=== PATIENT | female | born 1955 | race Caucasian/White ===

== ENCOUNTER 2016-10-29 01:35 | Inpatient (IN) | payer OTHER ==
[~2016-10-29] VITALS: Ht 175.3 cm; Wt 108.9 kg
[~2016-10-29 01:35] MED LIST: PATADAY2.5 ML OU; PROAIR HFA8.5 GM INH; VERAMYST10 GM INH; VYVANSE40 M1 PO; XYZAL5 M1 PO; ZOLOFT100 M1 PO
--- NOTE | 2016-10-29 11:30 | Admission Core Measures ---
Admission Meds I reviewed the following Meds: Current Medications Sig/Naheed Start time Last Medication Dose Stop Time Status Admin Cefazolin Sodium 2,000 MG ONCE 10/29 0000 NR (Kefzol-Ancef Inj) 10/29 2358 Oxycodone HCl 10 MG ONCE 10/29 0000 NR (Roxicodone) 10/29 2358 Acute Coronary Syndrome Inclusion Criteria ACS Diagnosis No Inpatient Core Measures LDL Reminder: If No, please order W/I first 24hr of stay Congestive Heart Failure Inclusion Criteria CHF Diagnosis No Cerebrovascular accident Inclusion Criteria CVA/TIA Diagnosis No Inpatient Core Measures Bedside Swallow Eval Reminder: If BSE failed, place ST order Antithrombotic Reminder: Order Antithrombotic Medication by end of day 2 Antithrombotic Reminder: Document Reason Antithrombotic Not ordered by end of day 2 AFIB/Flutter Reminder: If Present, add to problem list AFIB/Flutter Reminder: Order Anticoag Medication for pts with AFIB/Flutter Atherosclerosis Reminder: If Present, add to problem list LDL Reminder: If No, please order W/I first 24hr of stay PT Order Reminder: If No, please order Venous thromboembolism Inpatient Core Measures VTE Risk Factors: Age > 40, Surgery No [facility] VTE prophylaxis d/t No contraindications No VTE Pharm Prophylaxis d/t No contraindications Inclusion Criteria - Per Current guidelines, there needs to be overlap - treatment for the first 5 days of Warfarin therapy. - Parenteral Anticoagulation (IV or SC) needs to be - given along with Warfarin therapy. VTE Diagnosis No VTE Type NONE VTE Confirmed by (Test) NONE Problem List As ranked by this Provider includes Assessment & Plan 1. S/P total hip arthroplasty HOME MEDS Home Med List Albuterol Sulfate (Proair Hfa) 90 MCG HFA.AER.AD 1 PUFF INH PRN PRN ASTHMA ( Reported) Fluticasone Furoate (Veramyst) 27.5 MCG/ACTUATION SPRAY.SUSP 1 PUFF INH PRN PRN ALLERGIES (Reported) Levocetirizine Dihydrochloride (Xyzal) 5 MG TABLET 1 TAB PO D ALLERGIES ( Reported) Lisdexamfetamine Dimesylate (Vyvanse) 40 MG CAPSULE 1 TAB PO DAILY ADHD ( Reported) Olopatadine HCl (Pataday) 0.2 % DROPS 1 GTT OU PRN PRN ALLERGIES (Reported) Sertraline HCl (Zoloft) 100 MG TABLET 1.5 TAB PO DAILY ADHD (Reported)
[2016-10-29] MEDS ORDERED: DILAUDID4 M1 PO (11:34)
[2016-10-29] MEDS ORDERED: COLACE100 M1 PO (11:34)
[2016-10-29] MEDS ORDERED: MS CONTIN15 M2 PO (11:34)
[2016-10-29] MEDS ORDERED: ASPIRIN325 M2 PO (11:34)
[2016-10-29] MEDS ORDERED: MIRALAX17 G1 PO (11:34)
--- NOTE | 2016-10-29 11:37 | Patient Discharge Instructions ---
Discharge Instructions General Discharge Information You were seen/treated for: Right hip degenerative joint disease You had these procedures: Right total hip arthroplasty Watch for these problems: Significantly increased pain or difficulty ambulating. Increased redness or drainage from around the incision. Temperatures over 101 No bath, but you may shower: Yes Other wound care: Daily dry dressing changes Special Instructions: See printed information sheet Diet Continue normal diet: Yes Activity Activity Self Limited: Yes Other activity limits: Ambulate per physical therapy recommendations No driving or operating machinery until seen by her surgeon Acute Coronary Syndrome Inclusion Criteria At DC or during hospital stay patient has or had the following: ACS DIAGNOSIS No Discharge Core Measures Meds if any: Prescribed or Continued at Discharge Meds if any: NOT Prescribed or Continued at Discharge Congestive Heart Failure Inclusion Criteria At DC or during hospital stay patient has or had the following: CHF DIAGNOSIS No Discharge Core Measures Meds if any: Prescribed or Continued at Discharge Meds if any: NOT Prescribed or Continued at Discharge Cerebrovascular accident Inclusion Criteria At DC or during hospital stay patient has or had the following: CVA/TIA Diagnosis No Discharge Core Measures Meds if any: Prescribed or Continued at Discharge Meds if any: NOT Prescribed or Continued at Discharge Venous thromboembolism Inclusion Criteria VTE Diagnosis No VTE Type NONE VTE Confirmed by (Test) NONE Discharge Core Measures - Per Current guidelines, there needs to be overlap - treatment for the first 5 days of Warfarin therapy. - If discharged on Warfarin prior to 5 days of - overlap therapy, the patient will need to be - assessed for post discharge needs including - *Post discharge parental anticoagulation - *Warfarin and/or parental anticoagulation education - *Follow up date to check INR post discharge At least 5 days overlap therapy as Inpatient No Meds if any: Prescribed or Continued at Discharge Note: Overlap Therapy is Warfarin and Anticoagulant Meds if any: NOT Prescribed or Continued at Discharge
--- NOTE | 2016-10-29 11:40 | Surg Short-stay <48hrs Dis Sum ---
Visit Information Visit Dates Admission Date: 10/29/16 Discharge Date: 10/30/16 Surgical Short Stay DC Summary Admission Diagnosis: Right hip degenerative joint disease Final Diagnosis: Same Procedure(s): Right total hip arthroplasty Summary/Significant Findings: The patient was admitted on 10/29/2016. She was brought to the operating theater where she underwent a right total hip arthroplasty. Postoperatively the patient progressed as expected and her pain is under adequate control. The patient worked both physical therapy, tolerated diet, and voided postoperatively. The patient was discharged with an uneventful hospital course. Condition at Discharge: Stable Discharge Disposition: home health services Discharge instructions provided to patient/family: Yes Post discharge follow-up plan: Call to be seen in 6 weeks or earlier if need be.
--- NOTE | 2016-10-29 15:03 | Operative Report ---
Operative/Inv Procedure Report Surgery Date: 10/29/16 Name of Procedure: Right total hip replacement Pre-Operative Diagnosis: Primary right hip DJD Post-Operative Diagnosis: Primary right hip DJD Estimated Blood Loss: 300 Surgeon/Coater Slate: ANTHONY LONDON,AVINASH Egan Anesthesia: block Operative/Procedure Note Note: Description of Procedure: The patient was taken to the operating room and positively identified. After induction of spinal anesthesia and administration of appropriate pre-operative antibiotics, the patient was positioned supine on the operating room table and all bony prominences were well padded. After performing a surgical timeout, the right lower extremity was prepped and draped in the usual sterile fashion. A direct anterior approach was made to the right hip. The incision was carried sharply through superficial soft tissues to the level of the fascia. Meticulous hemostasis was maintained with Bovie electocautery. The fascia over the tensor fascia chavez muscle was opened sharply and the interval between the TFL and the sartorius was entered bluntly taking care to stay lateral to the lateral femoral cutaneous nerve. Retractors were placed around the femoral neck and the pericapsular fat was identified. The ascending branches of the lateral femoral circumflex vessels were identified and carefully coagulated. The pericapsular fat and anterior capsule were then resected. A napkin ring osteotomy was performed and the femoral head was removed without difficulty. Attention was then turned to the acetabulum. After appropriate placement of retractors, the acetabulum was exposed. Soft tissue was cleaned from the acetabular margin and notch. Overhanging osteophytes were removed and the teardrop was exposed. The acetabulum was then sequentially reamed to accept a 56 mm Adelina Tritanium hemispherical solid back shell. This was impacted into place in the appropriate position and fitted with a 32 mm Trident X3 zero degree polyethylene insert. Attention was then turned to the femur. After performing the appropriate ligament releases, the proximal femur was exposed. It was then sequentially broached to accept a size 7 [place] accolade 2 stem. This was trialed for leg length and stability. The trial component was removed and the final component was impacted into place. The trunnion was carefully cleaned and fit with a 32 mm, +0 Biolox delta ceramic femoral head. The hip was reduced and put through a full range of motion and found to be stable. The articular space was then irrigated with sterile saline. The periarticular soft tissues were infilitrated with Marcaine. The fascial layer was closed with interrupted #1 vicryl suture and the skin was re-approximated with interrupted 2 -0 vicryl. The skin was closed with a running 3-0 V-Lock suture. Steri-strips and a sterile dressing were applied. The patient was awakened and taken to the recovery room in satisfactory condition.
--- NOTE | 2016-10-29 15:06 | RADIOLOGY REPORT ---
EXAMINATION: XR HIP, RIGHT CLINICAL INFORMATION: Postop hip replacement in PACU COMPARISON: None TECHNIQUE: Two views of the right hip. FINDINGS: Lateral view limited in the acetabular region. Right hip pacer noted with components in the usual position. No periprosthetic fracture or abnormal area of lucency. IMPRESSION: Right total hip arthroplasty without complication by x-ray. Slightly limited lateral view
[2016-10-29 16:42] VITALS: BP 114/64
--- NOTE | 2016-10-29 16:55 | PN- Orthopedic ---
Subjective Subjective: Post op check Awake, alert, already ambulated with PT and did well Tolerating diet Pain well controlled at this time voiding without difficulty Objective Vital Signs and I&Os Vital Signs Date Time Temp Pulse Resp B/P Pulse O2 O2 Flow FiO2 Ox Delivery Rate 10/29 1642 97.7 72 20 114/64 93 Room Air Physical Exam: General: alert and oriented times three Chest: clear anteriorly bilaterally, RRR Abd: soft, good bs Ext: warm, positive sensate, no calf tenderness Wound: dressed, dry Current Medications: Current Medications Sig/Naheed Start time Last Medication Dose Route Stop Time Status Admin Acetaminophen 1,000 MG Q8 PRN 10/29 1115 UNVr IV 10/30 2201 Albuterol Sulfate 2 PUF Q4P PRN 10/29 1115 AC INH Aspirin 325 MG BID 10/29 220 AC PO Cefazolin Sodium 1,000 MG IQ8 10/29 1600 AC IV 10/30 0001 Cefazolin Sodium 2,000 MG ONCE 10/29 0000 DC IV 10/29 2359 Dextrose/Sodium 1,000 ML .[id number] 10/29 1600 AC Chloride IV Docusate Sodium 100 MG BID 10/29 2200 AC PO Hydromorphone HCl 2 MG Q4P PRN 10/29 1600 AC PO Hydromorphone HCl 4 MG Q4P PRN 10/29 1600 AC PO Methylphenidate HCl 5 MG BID 10/29 2200 AC PO Morphine Sulfate 2 MG Q2P PRN 10/29 1600 AC IV Ondansetron HCl 4 MG Q6P PRN 10/29 1600 AC IV Oxycodone HCl 10 MG .STK-MED ONE 10/29 1137 DC PO 10/29 1138 Oxycodone HCl 10 MG ONCE 10/29 0000 DC PO 10/29 2359 Polyethylene Glycol 17 GM DAILY 10/30 1000 AC PO Sertraline HCl 150 MG DAILY 10/30 1000 AC PO Assessment/Plan Assessment/Plan 61 female s/p R THR anterior approach pain management dvt ppx - asa 325mg po bid ambulate witih PT - wbat likely dc in am with home nursing Core Measures/Miscellaneous Venous Thromboembolism VTE Risk Factors: Age > 40, Surgery VTE Contraindications: No Contraindications VTE Diagnosis: No VTE Type: NONE VTE Confirmed by (Test): NONE Beta Andree Is Beta Andree a Home Med? No Antibiotics Is Patient on Antibiotics? Yes If Yes: prophylaxis (24 hrs post op)
[2016-10-29 18:17] VITALS: BP 112/60
--- NOTE | 2016-10-29 18:53 | NUR ---
1630: RECEIVED PT FROM PACU AT 1600. A+OX3. ON RA. VSS. AFEBRILE. DENIES CHEST PAIN OR SOB. PT WAS ABLE TO MOVE HERSELF OVER FROM STRETCHER TO BED. LUNGS CLEAR, PT IS CURRENT EVERY DAY SMOKER. ABDOMEN SOFT, HYPOACTIVE BOWEL SOUNDS. ALPS IN PLACE. DRESSING TO RIGHT HIP CLEAN DRY AND INTACT, +CMS. PEDAL PULSE MARKED WITH X. ALPS ON. PT OOB WITH MINIMAL ASSIST AND VOIDED IN TOILET, HAT PLACED. #20 LH WITH D5 1/2NS @ 75ML/HR. DENIES PAIN AT THIS TIME. ORIENTED TO ROOM AND CALL ZUÑIGA. PT AMBULATED WITH PT AND DID STAIRS, PT GOING TO STAY TONIGHT AND GO HOME TOMORROW. TOLERATING DIET. WILL MONITOR. REPORT GIVEN TO SANDRA GOLDMAN.
[2016-10-29 20:06] VITALS: BP 104/60
[2016-10-29 22:30] VITALS: BP 123/67
[2016-10-29 23:59] VITALS: BP 130/78
[2016-10-30 04:17] VITALS: BP 132/66
--- NOTE | 2016-10-30 07:08 | PN- Orthopedic ---
Subjective Subjective: The patient was seen this morning postoperatively day #1. She reports some mild muscle soreness but is otherwise comfortable at the current pain regiment. She is ambulating well with a walker and is eager to go home this morning. She has no other complaints at the current time and denies any chest pain or difficulty breathing. Objective Vital Signs and I&Os Vital Signs Date Time Temp Pulse Resp B/P Pulse O2 O2 Flow FiO2 Ox Delivery Rate 10/30 0417 96.3 61 20 132/66 99 Room Air 10/29 2359 96.4 66 20 130/78 98 Room Air / 2230 96.5 73 20 123/67 96 Room Air / 2006 98.4 69 20 104/60 92 Room Air 10/29 1939 Room Air Room Air 10/29 1817 98.3 76 20 112/60 92 Room Air 10/29 1642 97.7 72 20 114/64 93 Room Air Intake & Output 10/30 0800 03/07 0000 03/06 1600 / 0800 / 0000 03/05 1600 Intake Total 1080 2400 Output Total 900 600 Balance 180 1800 Intake, IV 600 600 Intake, Oral 480 1800 Output, Urine 900 600 Patient 240 lb Weight Physical Exam: Gen.: Alert and in no obvious distress Skin: Warm and dry Extremities: Bilateral lower extremities are warm without calf tenderness or significant edema. Gross motor and sensory are intact. Right hip surgical dressing is clean, dry, and intact without signs of infection. There is expected postoperative edema and ecchymosis without gross hematoma. Assessment/Plan Assessment/Plan Assessment: 61-year-old female status post right total hip arthroplasty postoperative day 1. The patient is progressing as expected and her pain is under adequate control. Plan: Continue to work with physical therapy Hep-Lock IV fluids GI and DVT prophylaxis Continue current pain regiment Discharge home later today Core Measures/Miscellaneous Venous Thromboembolism VTE Risk Factors: Age > 40, Surgery VTE Contraindications: No Contraindications VTE Diagnosis: No VTE Type: NONE VTE Confirmed by (Test): NONE Beta Andree Is Beta Andree a Home Med? No Antibiotics Is Patient on Antibiotics? No
[2016-10-30 08:08] VITALS: BP 126/60
[2016-10-30 08:10] LABS: ABSOLUTE BASOPHIL COUNT 0 /CUMM (0.0-0.2); ABSOLUTE EOSINOPHIL COUNT 0 /CUMM (0.0-0.7); ABSOLUTE GRANULOCYTE CT 11.4 /CUMM (1.4-6.5); ABSOLUTE LYMPH COUNT 1.8 /CUMM (1.2-3.4); BASOPHIL % 0.3 % (0.0-2.0); EOSINOPHIL % 0.2 % (0-5); GRANULOCYTE % 79.6 % (42.2-75.2); HEMATOCRIT 31.9 % (37-47); MEAN CORPUSCULAR HGB 31.4 PG (27.0-31.0); MEAN CORPUSCULAR VOLUME 92.2 FL (81.0-99.0); MEAN PLATELET VOLUME 9.2 FL (7.4-10.4); PLATELET COUNT 244 /CUMM (130-400); RBC DISTRIBUTION WIDTH 13.6 % (11.5-14.5); RED BLOOD CELL CT 3.46 /CUMM (4.20-5.40); WHITE BLOOD CELL COUNT 14.4 /CUMM (4.8-10.8)
[2016-10-31] MEDS ORDERED: VALIUM5 M2 PO (03:54)
[2016-10-31] MEDS ORDERED: ZOFRAN ODT4 M1 SL (03:54)
== END 2016-10-30 11:33 | disposition home health service (06) | DRG 470 ==
LOC: ENRESERVTM → ENRESERVDT → SDA 01:35 → 2NB 01:35 → ENPENDDIS 01:35 → 2NB 15:40
PROVIDERS: Physician Assistant Surgical; ADMIT Orthopaedic Surgery
PROC: 0SR904A Replacement of Right Hip Joint with Ceramic on Polyethylene Synthetic Substitute, Uncemented, Open Approach (ICD-10-PCS; principal; 2016-10-29)
DX: M16.11 Unilateral primary osteoarthritis, right hip (principal); E66.9 Obesity, unspecified; F32.9 Major depressive disorder, single episode, unspecified; F90.9 Attention-deficit hyperactivity disorder, unspecified type; J45.909 Unspecified asthma, uncomplicated; E78.5 Hyperlipidemia, unspecified; Z68.35 Body mass index [BMI] 35.0-35.9, adult
CPT/HCPCS: 36415; 73502-RT; 82436; 88304; 97110-GO; 97116-GO; 97161-GP; 97530-GO; J0690; J1100; J1885; J2405; J3490; J7042

== ENCOUNTER 2016-10-31 00:24 | Emergency (ER) | payer OTHER ==
[~2016-10-31] VITALS: Ht 172.7 cm; Wt 81.6 kg
[~2016-10-31 00:24] MED LIST changes: +ASPIRIN325 M2 PO; +COLACE100 M1 PO; +DILAUDID4 M1 PO; +MIRALAX17 G1 PO; +MS CONTIN15 M2 PO
--- NOTE | 2016-10-31 00:40 | ED AMS/SEIZURE/WEAK/DIZZY ---
History of Present Illness General Chief Complaint: General Adult Stated Complaint: "BIBA +N+V, HIP PAIN, S/P HIP SURGERY" Source: patient, family, old records, EMS Exam Limitations: no limitations Vital Signs & Intake/Output Vital Signs & Intake/Output Vital Signs Date Time Temp Pulse Resp B/P Pulse O2 O2 Flow FiO2 Ox Delivery Rate 10/31 0026 98.4 66 18 114/52 96 Room Air Allergies Coded Allergies: acetaminophen (From NYQUIL) (Severe, ANAPHYLAXIS 10/25/16) dextromethorphan (From NYQUIL) (Severe, ANAPHYLAXIS 10/25/16) doxylamine (From NYQUIL) (Severe, ANAPHYLAXIS 10/25/16) pseudoephedrine (From NYQUIL) (Severe, ANAPHYLAXIS 10/25/16) Uncoded Allergies: BEE STINGS (Intermediate, 10/25/16) ENVIRONMENTAL (Intermediate, 10/25/16) Reconcile Medications Albuterol Sulfate (Proair Hfa) 90 MCG HFA.AER.AD 1 PUFF INH PRN PRN ASTHMA ( Reported) Aspirin (Aspirin*) 325 MG TABLET 1 TAB PO BID BLOOD THINNER Diazepam (Valium) 5 MG TABLET 1 TAB PO Q6P PRN VERTIGO Docusate Sodium (Colace) 100 MG CAPSULE 1 CAP PO BID CONSTIPATION Fluticasone Furoate (Veramyst) 27.5 MCG/ACTUATION SPRAY.SUSP 1 PUFF INH PRN PRN ALLERGIES (Reported) Hydromorphone HCl (Dilaudid) 4 MG TABLET 1-2 TAB PO Q4-6P PRN PAIN Levocetirizine Dihydrochloride (Xyzal) 5 MG TABLET 1 TAB PO D ALLERGIES ( Reported) Lisdexamfetamine Dimesylate (Vyvanse) 40 MG CAPSULE 1 TAB PO DAILY ADHD ( Reported) Morphine Sulfate (Ms Contin) 15 MG TABLET.ER 1 TAB PO BID PAIN Olopatadine HCl (Pataday) 0.2 % DROPS 1 GTT OU PRN PRN ALLERGIES (Reported) Ondansetron (Zofran Odt) 4 MG TAB.RAPDIS 1 TAB SL TID PRN NAUSEA Polyethylene Glycol 3350 (Miralax) 17 GRAM POWD.PACK 1 PAC PO DAILY CONSTIPATION dissolve in water Sertraline HCl (Zoloft) 100 MG TABLET 1.5 TAB PO DAILY ADHD (Reported) Triage Note: PT BIBA FROM HOME. PER EMS, PT WAS HERE YESTERDAY FOR R HIP REPLACEMENT. PT STATES THAT TODAY SHE WAS GOING UP THE STAIRS AT HOME WHEN SHE BEGAN TO FEEL DIZZY, DIAPHORETIC AND EXPERIENCED N/V. PT STATES SHE HAS EXPERIENCED SIMILAR EPISODES IN THE PAST. UPON ED ARRIVAL PT ALERT AND ORIENTED, DENIES SOB, DENIES CP. PT COMPLAINS OF CONSTIPATION. Triage Nurses Notes Reviewed? yes HPI: Patient had a hip replacement yesterday and was discharged this morning. Since being at home she has been having intermittent room spinning dizziness associated with nausea and vomiting. Similar symptoms in the past but they have usually gone away. This morning she was walking with the bathroom when again the room spinning dizziness came on associated with vomiting and she felt that she could not make it back to bed. Patient also became concerned because she just had the hip replacement so close back to the emergency room for evaluation. Patient denies any fevers or chills. There is no chest pain or palpitations. There is no diarrhea. Patient denies any abdominal pain. Past History Travel History Traveled to [place] past 21 day No Medical History Any Pertinent Medical History? 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 No Review of Systems Review of Systems Constitutional: Reports: no symptoms. EENTM: Reports: no symptoms. Respiratory: Reports: no symptoms. Cardiovascular: Reports: no symptoms. GI: Reports: see HPI, nausea, vomiting. Genitourinary: Reports: no symptoms. Musculoskeletal: Reports: no symptoms. Skin: Reports: no symptoms. Neurological/Psychological: Reports: see HPI. Hematologic/Endocrine: Reports: no symptoms. Immunologic/Allergic: Reports: no symptoms. All Other Systems: Reviewed and Negative Physical Exam Physical Exam General Appearance: well developed/nourished, alert, awake, moderate distress Head: atraumatic, normal appearance Eyes: Bilateral: PERRL, EOMI, other (NYSTAGMUS TO LEFT). Ears, Nose, Throat: normal pharynx, normal ENT inspection, hearing grossly normal Neck: normal inspection, supple, full range of motion Respiratory: normal breath sounds, chest non-tender, no respiratory distress, lungs clear Cardiovascular: regular rate/rhythm, normal peripheral pulses Gastrointestinal: normal bowel sounds, soft, non-tender, no organomegaly Extremities: normal range of motion Neurologic/Psych: no motor/sensory deficits, awake, alert, oriented x 3, normal mood/affect Skin: intact, normal color, warm/dry Core Measures ACS in differential dx? No CVA/TIA Diagnosis: No Severe Sepsis Present: No Septic Shock Present: No Progress Differential Diagnosis: arrythmia, anemia, CVA/stroke, drug intoxication, electrolyte imbalance, labrynthitis, Meniere's disease, postural hypotension, presyncope Plan of Care: Orders Procedure Date/time Status Telemetry/Ingot Stripper 10/31 38 Active TROPONIN LEVEL 10/31 38 Complete COMPREHENSIVE METABOLIC PANEL 10/31 38 Complete CBC WITHOUT DIFFERENTIAL 10/31 38 Complete EKG 10/31 38 Active Current Medications Sig/Naheed Start time Last Medication Dose Stop Time Status Admin Morphine Sulfate 4 MG ONCE ONE 10/31 129 CAN (Morphine) 10/31 130 Laboratory Tests 10/31/16 0104: Anion Gap 8, Estimated GFR > 60, BUN/Creatinine Ratio 22.5, Glucose 114 H, Calcium 9.0, Total Bilirubin 0.5, AST 84 H, ALT 47, Alkaline Phosphatase 77, Troponin I < 0.01, Total Protein 6.4, Albumin 3.6, Globulin 2.8, Albumin/ Globulin Ratio 1.3, CBC w Diff NO MAN DIFF REQ, RBC 3.53 L, MCV 91.6, MCH 31.6 H, RDW 13.7, MPV 8.7, Gran % 81.4 H, Lymphocytes % 12.1 L, Monocytes % 5.4, Eosinophils % 1.0, Basophils % 0.1, Absolute Granulocytes 10.0 H, Absolute Lymphocytes 1.5, Absolute Monocytes 0.7 H, Absolute Eosinophils 0.1, Absolute Basophils 0, PUBS MCHC 34.5 Initial ED EKG: NSR, nonspecific ST T wave chg Rhythm Strip: normal sinus rhythm Comments: Patient is feeling better. Patient also began to experience increasing pain to her right hip. Patient was given IV Toradol and the pain decreased down to 1 out of 10. Patient states that she feels better after the Toradol even more so than she did after the morphine that she was taking at home. Departure Departure Disposition: HOME OR SELF CARE Condition: Stable Clinical Impression Primary Impression: Vertigo Referrals: ALEKSANDRA LONDON,VILMA Gandhi (PCP/Family) Additional Instructions: RETURN IF SYMPTOMS WORSEN OR FOR ANY CONCERNS Departure Forms: Customer Survey General Discharge Information Prescriptions: Current Visit Scripts Diazepam (Valium) 1 TAB PO Q6P PRN VERTIGO #20 TAB Ondansetron (Zofran Odt) 1 TAB SL TID PRN NAUSEA #10 TAB
[2016-10-31 01:13] LABS: ABSOLUTE BASOPHIL COUNT 0 /CUMM (0.0-0.2); ABSOLUTE EOSINOPHIL COUNT 0.1 /CUMM (0.0-0.7); ABSOLUTE LYMPH COUNT 1.5 /CUMM (1.2-3.4); ABSOLUTE MONOCYTE COUNT 0.7 /CUMM (0.10-0.60); BASOPHIL % 0.1 % (0.0-2.0); GRANULOCYTE % 81.4 % (42.2-75.2); HEMATOCRIT 32.4 % (37-47); MEAN CORPUSCULAR HGB 31.6 PG (27.0-31.0); MEAN CORPUSCULAR HGB CONC 34.5 G/DL (33.0-37.0); MEAN CORPUSCULAR VOLUME 91.6 FL (81.0-99.0); MEAN PLATELET VOLUME 8.7 FL (7.4-10.4); PLATELET COUNT 237 /CUMM (130-400); RBC DISTRIBUTION WIDTH 13.7 % (11.5-14.5); RED BLOOD CELL CT 3.53 /CUMM (4.20-5.40); WHITE BLOOD CELL COUNT 12.3 /CUMM (4.8-10.8)
[2016-10-31] MEDS ORDERED: VALIUM5 M2 PO (03:54)
[2016-10-31] MEDS ORDERED: ZOFRAN ODT4 M1 SL (03:54)
[2016-10-31 04:22] VITALS: BP 104/54
== END 2016-10-31 04:23 ==
LOC: ERH 00:24
PROVIDERS: Emergency Medicine
DX: R42 Dizziness and giddiness (principal); R11.2 Nausea with vomiting, unspecified
CPT/HCPCS: 93005; 93010; 96374; 96375; 96376; J1885; J2405; J3360